=== PATIENT | male | born 1945 | race Two or more races ===

== ENCOUNTER → 2020-08-16 | Outpatient (CLI) | payer MEDICARE | LOC: LAB 09:42 | PROVIDERS: ATTEND Internal Medicine Gastroenterology | DX: R19.7 Diarrhea, unspecified (principal) | CPT/HCPCS: 36415; 87493 ==

== ENCOUNTER → 2021-08-05 | Outpatient (CLI) | payer MEDICARE, OTHER ==
--- NOTE | 2021-08-05 09:25 | RAD ---
EXAM: Left foot, 3 views. HISTORY: Fourth and fifth toe ulcers. COMPARISON: None. FINDINGS: 3 views of the left foot are obtained. There is no acute fracture, dislocation or subluxati on. There is a spur at the base of the second proximal phalanx. There is also minimal spurring involv ing the first metatarsal phalangeal joint. There is a small plantar spur. There is enthesopathy at Ac hilles tendon insertion. There are vascular calcifications. There are mild hammertoe deformities. The cortex of the tuft of the fifth distal phalanx is not well seen on the oblique projection. IMPRESSION: 1. Indistinct cortex of the tuft of the fifth distal phalanx in the oblique projection. Given a histo ry of a soft tissue ulcer involving the fifth toe, this may be due to osteomyelitis rather than artif act or bone demineralization. This can be better assessed with MRI. 2. 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 3. Small plantar spur and enthesopathy at Achilles insertion. Electronically signed by: Carolyn Akers MD (08/05/2021 9:22 AM) [id number]
== END ==
LOC: RAD 09:01
PROVIDERS: ATTEND Podiatrist
DX: M19.072 Primary osteoarthritis, left ankle and foot (principal); M77.32 Calcaneal spur, left foot; L97.529 Non-pressure chronic ulcer of other part of left foot with unspecified severity
CPT/HCPCS: 73630